=== PATIENT | female | born 1955 | race Caucasian/White ===

== ENCOUNTER 2016-09-29 23:06 | Emergency (ER) | payer OTHER ==
[~2016-09-29] VITALS: Ht 162.6 cm; Wt 61.0 kg
[~2016-09-29 23:06] MED LIST: ASPCH81X PO; B-COCAP2 PO; SULF800T23 PO; [UNRECOGNIZED DRUG - OTHER] PO
[2016-09-29 23:13] VITALS: BP 141/93; PULSE 80; TEMP 37; O2SAT 99; Ht 162.6 cm; Wt 61.0 kg
[2016-09-29] MEDS ORDERED: SULF800T23 PO (23:43)
[2016-09-29] MEDS ORDERED: PHENAZOPYRIDINE HOME PACK 200 MG VIAL PO ONE (23:45)
[2016-09-29] MEDS ORDERED: SEPTRA DS HOME PACK 1 EA VIAL PO ONE (23:45)
[2016-09-29] MEDS ORDERED: VITA400C3 PO (23:46)
[2016-09-29] MEDS ORDERED: CHOL1000 PO (23:46)
[2016-09-29] MEDS ORDERED: VITACAP26 PO (23:46)
[2016-09-29 23:53] LABS: URINE APPEARANCE CLEAR (CLEAR); URINE BILIRUBIN NEG (NEG); URINE COLOR YELLOW; URINE NITRITE POS (NEG); URINE SPECIFIC GRAVITY 1.002 (1.000-1.030); UROBILINOGEN NEG (NEG); ZZUR CULT IF INDIC CLEAN CATCH YES
[2016-09-30 00:07] LABS: MANUAL MICROSCOPIC REQUIRED? NO; REVIEW REQ? NO
--- NOTE | 2016-09-30 01:03 | EMERGENCY ROOM VISIT NOTE ---
ED Visit Note First contact with patient: 23:21 CHIEF COMPLAINT: Frequent and painful urination HISTORY OF PRESENT ILLNESS: This 61-year-old female presents to the emergency department complaining of increased frequency of urination, burning pain with urination, and a feeling of incomplete voiding for about the past 12 hours. The patient passes very small volumes of urine with each episode of voiding. The patient does not have abdominal pain. They deny back pain, fever, or vaginal discharge. The patient has had frequent urinary tract infections in the past. Patient feels they are not at risk for STIs. REVIEW OF SYSTEMS: A 6 system review of systems was completed with positives and pertinent negatives listed in the HPI. ALLERGIES: No known allergies MEDICATIONS: No chronic medications PMH: Otherwise healthy SOCIAL HISTORY: Lives locally PHYSICAL EXAM: Vital Signs: Reviewed Nurse's notes, vital signs stable. GENERAL : White female, in no acute distress, they do not appear toxic, well-developed, well-nourished. ABDOMEN: Positive bowel sounds x 4. The abdomen is soft, mildly tender in the suprapubic area, but no masses or organs are felt. There is no CVA tenderness. The skin is clear. NEURO: Alert and oriented to person place and time. EMERGENCY DEPARTMENT COURSE: Physical exam and history were performed. Nursing notes and EMR were reviewed. The patient appears to have UTI symptoms. Urine dip was performed that is highly suggestive of a UTI. The patient has had UTIs in the past and has done well with Bactrim. She'll be started on Bactrim and Pyridium. The patient was asked to follow with her primary care physician with any ongoing or persistent symptoms. She voiced understanding and rated her discomfort a 0/10 at the time of departure. Problem List Medical Problems: (1) Diverticulosis Colon (W/O Ment Of Hemorrhage) Status: Chronic (2) Dyslipidemia Status: Chronic (3) Lumbosacral Neuritis Nos Status: Chronic (4) Skin Sensation Disturb Status: Chronic Current/Historical Medications Scheduled Aspirin (Aspirin Chewable), 81 MG PO DAILY B-Complex Vitamins (Vitamin B Complex), 1 TAB PO DAILY Cholecalciferol (Vitamin D3), 1 TAB PO DAILY [place]-3 Fatty Acids (Fish Oil), 1 CAP PO DAILY Simvastatin (Zocor), 10 MG PO QPM Sulfamethoxazole-Trimethoprim (Bactrim Ds 800MG/160MG), 1 TAB PO BID Vitamin E (Vitamin E 400 Iu), 400 INTER.UNIT PO DAILY Vitamins C & E (Vitamin C), 1 CM PO DAILY Allergies Coded Allergies: No Known Allergies (Verified , 09/29/16) Vital Signs Date Time Temp Pulse Resp B/P Pulse Ox O2 Delivery O2 Flow Rate FiO2 09/29/16 23:13 37.0 80 18 141/93 99 Room Air Laboratory Results Test 09/29/16 00:00 Urine Color YELLOW Urine Appearance CLEAR (CLEAR) Urine pH 7.0 (4.5-7.5) Urine Specific [place] 1.002 (1.000-1.030) Urine Protein NEG (NEG) Urine Glucose (UA) NEG (NEG) Urine Ketones NEG (NEG) Urine Occult Blood 3+ (NEG) Urine Nitrite POS (NEG) Urine Bilirubin NEG (NEG) Urine Urobilinogen NEG (NEG) Urine Leukocyte Esterase LARGE (NEG) Urine WBC (Auto) >30 /hpf (0-5) Urine RBC (Auto) 10-30 /hpf (0-4) Urine Hyaline Casts (Auto) 1-5 /lpf (0-5) Urine Epithelial Cells (Auto) 5-10 /lpf (0-5) Urine Bacteria (Auto) 2+ (NEG) Medications Administered Medications (Trade) Dose Ordered Sig/Ana Route Start Time Stop Time Status Last Admin Dose Admin Trimethoprim/ Sulfamethoxazole (Sulfameth/ Trimeth Ds 800/ 160MG Home Pack) 1 homepack UD ONCE PO 09/29/16 23:45 09/29/16 23:46 DC 09/29/16 23:53 1 HOMEPACK Phenazopyridine HCl (Phenazopyridine HCl 200MG Home Pack) 1 homepack UD ONCE PO 09/29/16 23:45 09/29/16 23:46 DC 09/29/16 23:53 1 HOMEPACK Departure Information Impression Primary Impression: Urinary tract infection Dispostion Home / Self-Care Condition GOOD Prescriptions Sulfamethoxazole-Trimethoprim (Bactrim Ds 800MG/160MG) 1 Tab Tab 1 TAB PO BID for 9 Days, #18 TAB Prov: Scottie Lagos PA-C 09/29/16 Referrals Letty Benton PA-C (PCP) Forms HOME CARE DOCUMENTATION FORM, IMPORTANT VISIT INFORMATION Patient Instructions My [facility] Additional Instructions You were seen and evaluated today on an emergency basis only. This is not a substitute for, or an effort to provide, complete comprehensive medical care. It is not possible to recognize and treat all injuries or illnesses in a single emergency department visit. For this reason it is recommended that you followup with your primary care physician with any ongoing or persistent symptoms. Trimethoprim-Sulfamethoxazole(Bactrim DS): Take one pill twice daily for 10 total days for your urine infection. All antibiotics can cause diarrhea. If this occurs and you feel worse or it does not resolve in 1-2 days follow up with your doctor or return to the Emergency Department as this could be signs of serious underlying problems. Any medication can cause an allergic reaction, stop the pills immediately and return to the ER for rash, hives, breathing difficulties, or swelling. You are welcome to return to the emergency department anytime with new, worsening, or concerning symptoms.
--- NOTE | 2016-10-01 13:58 | Pharmacy Progress Note ---
ED Pharmacist Culture FollowUp Date of Service: Oct 01, 2016. Patient was sent home with a prescription for Bactrim, which should cover the E. coli growing from the patient's urine culture.
[2017-02-15] MEDS ORDERED: OMEGCAP2 PO (10:00)
[2017-02-15] MEDS ORDERED: SIMV10TA2 PO (19:48)
== END 2016-09-29 23:57 | disposition home or self-care (01) ==
LOC: C.EDB 23:07 → C.EDA 23:57
DX: N39.0 Urinary tract infection, site not specified (principal); K57.30 Diverticulosis of large intestine without perforation or abscess without bleeding; E78.5 Hyperlipidemia, unspecified; M54.17 Radiculopathy, lumbosacral region; Z79.82 Long term (current) use of aspirin; Z79.899 Other long term (current) drug therapy

== ENCOUNTER 2017-02-15 22:16 | Emergency (ER) | payer OTHER ==
[~2017-02-15] VITALS: Ht 162.6 cm; Wt 62.2 kg
[~2017-02-15 22:16] MED LIST changes: -B-COCAP2 PO; +CHOL1000 PO; +OMEGCAP2 PO; +SIMV10TA2 PO; -SULF800T23 PO; +VITA400C3 PO; +VITACAP26 PO; -[UNRECOGNIZED DRUG - OTHER] PO
[2017-02-15 22:18] VITALS: TEMP 36.7; Ht 162.6 cm; Wt 62.2 kg
[2017-02-15] MEDS ORDERED: ASPI81TA28 PO (22:42)
[2017-02-15] MEDS ORDERED: CALC1TAB27 PO (22:42)
[2017-02-15] MEDS ORDERED: CEPH500C PO (22:44)
[2017-02-15] MEDS ORDERED: CEPHALEXIN 500MG HOME PACK 1 EA BTL PO ONE (22:45)
[2017-02-15 22:54] VITALS: BP 144/81; PULSE 86; O2SAT 100
--- NOTE | 2017-02-15 22:58 | EMERGENCY ROOM VISIT NOTE ---
History First contact with patient: 22:21 Chief Complaint: INFECTION Stated Complaint: FINGER INFECTION R HAND Nursing Triage Summary: right hand 2nd finger was cut over a week ago, pt noticed some redness and swelling pt concerned about infection History of Present Illness The patient is a 61 year old female who presents to the Emergency Room with complaints of an infected cut on her right index finger. The patient denies any known injury to the finger. She did notice what she thought was a cut of the finger last week. The patient reports that she is very active outside, and cannot rule out a possible injury/puncture wound of the finger. She has not noticed any redness, drainage, paresthesias or numbness of the finger. She has no worsening pain with flexion or extension of the finger. The patient is right -hand-dominant. She denies any pain. Tetanus immunization is up-to-date. Review of Systems 10 system review was performed and was negative except for pertinent positives and negatives as indicated in history of present illness Past Medical/Surgical History Medical Problems: (1) Diverticulosis Colon (W/O Ment Of Hemorrhage) (2) Dyslipidemia (3) Lumbosacral Neuritis Nos (4) Skin Sensation Disturb Family History No pertinent family history Social History Smoking Status: Never Smoker Alcohol Use: occasionally Marital Status: Housing Status: lives with family Occupation Status: employed Current/Historical Medications Scheduled Aspirin (Aspirin Ec), 81 MG PO DAILY B-Complex Vitamins (Vitamin B Complex), 1 TAB PO DAILY Yeygqdh-Lukncqint-Wdpe (Calcium Magnesium & Zinc), 1 TAB PO DAILY Cephalexin Monohydrate (Keflex), 500 MG PO TID [place]-3 Fatty Acids (Fish Oil), 1 CAP PO DAILY Simvastatin (Zocor), 10 MG PO QPM Allergies Coded Allergies: No Known Allergies (Verified , 09/29/16) Physical Exam Vital Signs Date Time Temp Pulse Resp B/P (MAP) Pulse Ox O2 Delivery O2 Flow Rate FiO2 02/15/17 22:18 36.7 78 18 150/87 99 Room Air Physical Exam CONSTITUTIONAL: Healthy and well nourished. Alert and oriented X 3 with positive affect. HEENT: Normocephalic, atraumatic. Pupils equal, round and reactive. MUSCULOSKELETAL: examination of the right index finger shows a pea-sized normal skin colored lesion over the radial base of the middle phalanx. There does appear to be a linear skin marking through the epidermis of this lesion. It is firm to palpation, not mobile, and has no erythematous base, drainage, or pustular/vesicular appearance. Flexion and extension does not cause any discomfort. Capillary refill is less than 2 seconds. INTEGUMENTARY: No rash or other significant dermatologic conditions noted. NEUROLOGIC: No focal neurologic deficits noted. Right index finger is sensory intact. Medical Decision & Procedures ED Course Patient history and physical exam were performed. Nurse's notes were reviewed. Vital signs were reviewed and normal. The patient was advised that the lesion does not appear to be infected. I did discuss other possibilities, including retained foreign body, giant cell tumor, intra-articular cyst, verruca , basal cell cancer such etiologies. The cousin its location directly over the digital nerve, I did suggest that she follow-up with her orthopedic surgeon, Dr. Quiroz, for further reevaluation and management. I did elect to prophylactically cover her with Keflex antibiotics. A prescription and home pack were provided. Ibuprofen or Tylenol as needed for pain. The patient was happy with plan of care, voiced understanding of all discharge instructions, and denied any pain at the time of discharge. Medical Decision Impression Primary Impression: Right index finger soft tissue mass Departure Information Dispostion Home / Self-Care Prescriptions Cephalexin Monohydrate (Keflex) 500 Mg Cap 500 MG PO TID for 6 Days, #18 CAP Prov: Jese Anne PA 02/15/17 Referrals Scottie Quiroz M.D. Forms HOME CARE DOCUMENTATION FORM, IMPORTANT VISIT INFORMATION Patient Instructions My [facility] [address] Additional Instructions Complete all Keflex antibiotics as prescribed. Keep lesion covered with an ointment and Band-Aid. Follow-up with Dr. Quiroz for further reevaluation and management - call tomorrow morning for an appointment.
[2017-02-15] MEDS ORDERED: B-COTAB18 PO (23:46)
== END 2017-02-15 22:54 | disposition home or self-care (01) ==
LOC: C.EDB 22:16 → C.EDC 22:54
DX: R22.31 Localized swelling, mass and lump, right upper limb (principal); E78.5 Hyperlipidemia, unspecified; K57.30 Diverticulosis of large intestine without perforation or abscess without bleeding; Z79.82 Long term (current) use of aspirin; Z79.899 Other long term (current) drug therapy